=== PATIENT | female | born 1980 | race Caucasian/White ===

== ENCOUNTER → 2018-02-15 | Outpatient (CLI) | payer OTHER | LOC: M.ULTRA 10:21 | DX: Z12.31 Encounter for screening mammogram for malignant neoplasm of breast (principal); E04.2 Nontoxic multinodular goiter ==

== ENCOUNTER → 2019-02-11 | Outpatient (CLI) | payer OTHER | LOC: M.RAD 10:19 | DX: Z12.31 Encounter for screening mammogram for malignant neoplasm of breast (principal) ==

== ENCOUNTER → 2019-02-19 | Outpatient (CLI) | payer OTHER | LOC: M.ULTRA 08:45 | DX: E04.2 Nontoxic multinodular goiter (principal) ==

== ENCOUNTER → 2020-06-11 | Outpatient (CLI) | payer OTHER | LOC: M.ULTRA 06-09 13:00 → M.RAD 06-09 13:30 → M.ULTRA 13:00 | PROVIDERS: ATTEND Family Medicine | DX: Z12.31 Encounter for screening mammogram for malignant neoplasm of breast (principal); E04.2 Nontoxic multinodular goiter ==